=== PATIENT | female | born 1980 | race Caucasian/White ===

== ENCOUNTER 2020-06-28 04:05 | Inpatient (IN) | payer OTHER ==
[~2020-06-28] VITALS: Ht 160 cm; Wt 72.6 kg
== END 2020-07-04 14:28 | disposition home or self-care (01) | DRG 446 ==
LOC: ER 04:05 → SURH 08:05
PROVIDERS: ADMIT Surgery; ATTEND Surgery
PROC: BW40ZZZ Ultrasonography of Abdomen (ICD-10-PCS; principal; 2020-06-28)
PROC: BF37ZZZ Magnetic Resonance Imaging (MRI) of Pancreas (ICD-10-PCS; 2020-06-30)
DX: K80.00 Calculus of gallbladder with acute cholecystitis without obstruction (principal); Z20.828 Contact with and (suspected) exposure to other viral communicable diseases

== ENCOUNTER 2020-08-16 05:08 | Day surgery (SDC) | payer OTHER | END 2020-08-16 14:00 | disposition home or self-care (01) | LOC: CIR.AMB 05:08 | PROVIDERS: ATTEND Surgery | DX: K80.12 Calculus of gallbladder with acute and chronic cholecystitis without obstruction (principal); Z20.828 Contact with and (suspected) exposure to other viral communicable diseases ==